=== PATIENT | male | born 1940 | race Caucasian/White ===

== ENCOUNTER 2020-06-07 17:30 | Emergency (ER) | payer OTHER ==
[~2020-06-07] VITALS: Ht 177.8 cm; Wt 74.8 kg
[~2020-06-07 17:30] MED LIST: ANAPROX275 MG PO; ATENOLOL25 MG PO; GLIPIZIDE10 MG PO; LEVAQUIN500 MG PO
[2020-06-07] MEDS ORDERED: GLIPIZIDE5 MG PO (17:44)
[2020-06-07] MEDS ORDERED: NORVASC2.5 MG PO (17:45)
[2020-06-07] MEDS ORDERED: CLOPIDOGREL BIS75 MG PO (17:45)
[2020-06-07] MEDS ORDERED: JANUMET XR 1001 EACH PO (17:45)
[2020-06-07] MEDS ORDERED: PROPRANOLOL HCL80 M1 PO (17:45)
[2020-06-07] MEDS ORDERED: VITAMIN D3250 MC1 PO (17:45)
[2020-06-07] MEDS ORDERED: METFORMIN HCL1000 M3 PO (17:46)
[2020-06-07] MEDS ORDERED: IRBESARTAN150 MG PO (17:46)
[2020-06-07] MEDS ORDERED: CENTRUM SILVER1 EAC2 PO (17:46)
[2020-06-07] MEDS ORDERED: FOLIC ACID0.4 MG PO (17:47)
[2020-06-07] MEDS ORDERED: ATORVASTATIN CA40 MG PO (17:47)
[2020-06-07] MEDS ORDERED: VITAMIN B-122500 MCG SL (17:47)
== END 2020-06-07 20:18 | disposition home or self-care (01) ==
LOC: ER 17:30
DX: K63.89 Other specified diseases of intestine (principal); R10.32 Left lower quadrant pain